=== PATIENT | female | born 1985 ===

== ENCOUNTER 2016-11-23 09:06 | Day surgery (SDC) | payer OTHER ==
[2016-11-23] MEDS ORDERED: Propofol 10 mg/ml Inj (20 ML) ONE (12:25)
[2016-11-23] MEDS ORDERED: Lactated Ringer's 500 ML IV ONE (12:33)
[2016-11-23 14:08] VITALS: BP 96/59; PULSE 63; RESP 18; TEMP 98.5; O2SAT 96
== END 2016-11-23 14:05 | disposition home or self-care (01) ==
LOC: C.ENDO 09:06
PROVIDERS: ATTEND Internal Medicine Gastroenterology
DX: K26.9 Duodenal ulcer, unspecified as acute or chronic, without hemorrhage or perforation (principal); K25.9 Gastric ulcer, unspecified as acute or chronic, without hemorrhage or perforation; K29.70 Gastritis, unspecified, without bleeding; R10.13 Epigastric pain; R14.0 Abdominal distension (gaseous)

== ENCOUNTER 2017-04-12 08:33 | Day surgery (SDC) | payer OTHER ==
[2017-04-12 09:00] VITALS: BMI 18.9
[2017-04-12 09:27] VITALS: TEMP 97.5
[2017-04-12] MEDS ORDERED: Propofol 10 mg/ml Inj (20 ML) ONE (10:08)
[2017-04-12 11:53] VITALS: RESP 12; O2SAT 100
[2017-04-12 11:57] VITALS: BP 112/59; PULSE 63
== END 2017-04-12 11:35 | disposition home or self-care (01) ==
LOC: C.ENDO 08:33
PROVIDERS: ATTEND Internal Medicine Gastroenterology
DX: K29.50 Unspecified chronic gastritis without bleeding (principal)
CPT/HCPCS: 43239; 84703; 88305; 88313; 88342; J2001; J2405; J2704; J7040

== ENCOUNTER 2019-01-26 20:05 | Emergency (ER) | payer OTHER ==
[2019-01-26 20:06] VITALS: BMI 18.9
[2019-01-26 20:19] VITALS: BP 126/83; PULSE 84; RESP 20; TEMP 98.3; O2SAT 96
--- NOTE | 2019-01-26 21:20 | C.PDOC ---
History Of Present Illness 33 y/o female presents to ED complaining of an itchy painful rash on her right buttock since yesterday. Denies any fever, chills, abdominal pain, nausea, or vomiting. Time Seen by Provider: 01/26/19 20:36 Chief Complaint (Nursing): Abnormal Skin Integrity History Per: Patient History/Exam Limitations: no limitations Onset/Duration Of Symptoms: Days Current Symptoms Are (Timing): Still Present Past Medical History Reviewed: Historical Data, Nursing Documentation, Vital Signs Vital Signs: Last Vital Signs Temp 98.3 F 01/26/19 20:07 Pulse 84 01/26/19 20:07 Resp 20 01/26/19 20:07 BP 126/83 01/26/19 20:07 Pulse Ox 96 01/26/19 20:07 Primary Care Provider: Trudy Elise - Medical History PMH: Gastritis, Migraine Denies: Chronic Kidney Disease Surgical History: Endoscopy, - [facility] Procedures ESOPHAGOGASTRODUODENOSCOPY [EGD] W/CLOSED BIOPSY (02/15/15) OTHER SKIN & SUBQ I D (04/17/14) TETANUS TOXOID ADMINIST (04/17/14) Family History: States: No Known Family Hx - Social History Hx Tobacco Use: No Hx Alcohol Use: Yes Hx Substance Use: No - Immunization History Hx Tetanus Toxoid Vaccination: No Hx Influenza Vaccination: No Hx Pneumococcal Vaccination: No Review Of Systems Constitutional: Negative for: Fever, Chills Cardiovascular: Negative for: Chest Pain Respiratory: Negative for: Shortness of Breath Gastrointestinal: Negative for: Nausea, Vomiting, Abdominal Pain Skin: Positive for: Rash (right buttock) Physical Exam - Physical Exam Appears: Non-toxic, No Acute Distress Skin: Warm, Dry, Rash (cluster of vesicles with erythematous base to the right buttocks close to the gluteal crease) Head: Normacephalic Eye(s): bilateral: Normal Inspection Oral Mucosa: Moist Neck: Supple Extremity: No Tenderness, No Swelling Extremity: Bilateral: Normal ROM Neurological/Psych: Oriented x3, Normal Speech ED Course And Treatment O2 Sat by Pulse Oximetry: 96 (RA) Pulse Ox Interpretation: Normal Medical Decision Making Medical Decision Making: Plan: --Motrin 800 mg PO --Tramadol 50 mg PO --Urine test Disposition Counseled Patient/Family Regarding: Diagnosis, Need For Followup, Rx Given - Disposition Disposition: HOME/ ROUTINE Disposition Time: 21:17 Condition: STABLE Prescriptions: Ibuprofen [Motrin Tab] 600 mg PO TID #21 tab traMADol [Ultram] 50 mg PO BID PRN #10 tab PRN Reason: Pain, Severe (8-10) valACYclovir [Valtrex] 1,000 mg PO Q8 7 Days tab Instructions: Shingles (DC) Forms: Gen Discharge Inst Camb[place]ian, [employer] (Cambodian) Print Language: [place]OT[place] - Clinical Impression Clinical Impression: Herpes zoster - PA / [employer] / Resident Statement MD/DO has reviewed & agrees with the documentation as recorded. - Scribe Statement The provider has reviewed the documentation as recorded by the Booibyolette Marie All medical record entries made by the Sahrda were at my direction and personally dictated by me. I have reviewed the chart and agree that the record accurately reflects my personal performance of the history, physical exam, medical decision making, and the department course for this patient. I have also personally directed, reviewed, and agree with the discharge instructions and disposition.
== END 2019-01-26 21:29 | disposition home or self-care (01) ==
LOC: C.ER 20:05
DX: B02.9 Zoster without complications (principal)